=== PATIENT | male | born 1990 | race Caucasian/White ===

== ENCOUNTER 2021-04-09 10:00 | Emergency (ER) | payer OTHER ==
[~2021-04-09] VITALS: Ht 185.4 cm; Wt 113.4 kg
[2021-04-09] MEDS ORDERED: PROZAC20 M1 PO (10:10)
[2021-04-09] MEDS ORDERED: LAMICTAL200 MG PO (10:10)
[2021-04-09] MEDS ORDERED: RISPERDAL0.5 MG PO (10:10)
[2021-04-09] MEDS ORDERED: ADDERALL 20 MG20 MG PO (10:10)
[2021-04-09] MEDS ORDERED: PROPRANOLOL 1010 M1 PO (10:11)
[2021-04-09] MEDS ORDERED: XANAX1 MG PO (10:12)
[2021-04-09] MEDS ORDERED: XANAX 1 MG TABLE1 MG PO (10:18)
[2021-04-09 10:24] VITALS: BP 153/96
== END 2021-04-09 10:24 | disposition home or self-care (01) ==
LOC: M.ERS 10:00
DX: F41.9 Anxiety disorder, unspecified (principal); Z76.0 Encounter for issue of repeat prescription; F32.9 Major depressive disorder, single episode, unspecified